=== PATIENT | male | born 1940 | race African-American/Black ===

== ENCOUNTER 2020-09-10 12:05 | Emergency (ER) | payer OTHER ==
[~2020-09-10] VITALS: Ht 177.8 cm; Wt 73.0 kg
[~2020-09-10 12:05] MED LIST: COR25; FURO-151; LISI10TA5; NTG
[2020-09-10] MEDS ORDERED: DEXAMETHASONE 10 MG/ML VIAL IV ONE (13:00)
[2020-09-10 13:01] LABS: HEMATOCRIT. 45.2 % (42.0-52.0); HEMOGLOBIN. 14.7 g/dL (14.0-18.0); MEAN CORPUSCULAR HEMOGLOBIN 31.5 pg (28.0-32.0); MEAN CORPUSCULAR VOLUME 96.8 fL (80.0-94.0); PLATELET 107 x1000/uL (130-400); RED BLOOD CELL COUNT 4.67 mill/uL (4.7-6.1); RED CELL DISTRIBUTION WIDTH 14.2 % (11.6-14.6)
[2020-09-10 13:14] LABS: CHLORIDE 105 mEq/L (98-107)
[2020-09-10 13:15] LABS: PLATELET ESTIMATE SLIGHTLY DECREASED
[2020-09-10] MEDS ORDERED: FLUORESCEIN SODIUM 1MG/STRIP RIGHTEYE ONE (13:30)
[2020-09-10] MEDS ORDERED: ACYCLOVIR 400 MG TABLET PO ONE (13:30)
[2020-09-10 13:45] LABS: CLARITY URINE CLEAR (CLEAR); COLOR URINE DARK YELLOW (YELLOW); KETONES URINE 1+ (NEGATIVE); LEUKOCYTE ESTERASE URINE 1+ (NEGATIVE); NITRITE URINE POSITIVE (NEGATIVE); OCCULT BLOOD URINE TRACE (NEGATIVE); PH URINE 5.5 (4.5-8.0); PROTEIN URINE 1+ (NEGATIVE); SPECIFIC GRAVITY URINE 1.028 (1.005-1.030)
[2020-09-10] MEDS ORDERED: VALA100044 PO (18:02)
[2020-09-10] MEDS ORDERED: P50 MT (18:03)
[2020-09-10 18:12] VITALS: BP 151/89
== END 2020-09-10 18:15 | disposition home or self-care (01) ==
LOC: ER 12:05
DX: B02.9 Zoster without complications (principal); I11.0 Hypertensive heart disease with heart failure; I50.9 Heart failure, unspecified; I48.91 Unspecified atrial fibrillation; I62.9 Nontraumatic intracranial hemorrhage, unspecified
CPT/HCPCS: 36415; 71045; 80048; 80076; 81003; 83605; 84484; 85025; 87040; 87086; 93005; 96374; 99285; J1100

== ENCOUNTER 2022-11-23 15:54 | Inpatient (IN) | payer MEDICARE ==
[~2022-11-23] VITALS: Ht 177.8 cm; Wt 79.4 kg
[2022-11-23] MEDS ORDERED: FUROSEMIDE 40MG/4ML VIAL IVP ONE (16:15)
[2022-11-23] MEDS ORDERED: LORAZEPAM 2MG/ML CPJ IV ONE (17:15)
[2022-11-23] MEDS ORDERED: LEVOFLOXACIN 750MG PREMIX 150 ML IV ONE (18:00)
[2022-11-23 18:02] LABS: HEMATOCRIT. 40.4 % (42.0-52.0); MEAN CORPUSCULAR HEMOGLOBIN 30.8 pg (28.0-32.0); MEAN CORPUSCULAR VOLUME 95.9 fL (80.0-94.0); MEAN PLATELET VOLUME 9.3 fl (7.4-10.4); PLATELET 165 x1000/uL (130-400); RED BLOOD CELL COUNT 4.22 mill/uL (4.7-6.1); RED CELL DISTRIBUTION WIDTH 16.8 % (11.6-14.6)
[2022-11-23 18:09] LABS: CHLORIDE 103 mEq/L (98-107); INR 2.1; PROTHROMBIN TIME 21.3 sec (9.6-11.0)
[2022-11-23 18:28] LABS: PLATELET ESTIMATE NORMAL
[2022-11-23 19:46] LABS: CLARITY URINE CLEAR (CLEAR); COLOR URINE YELLOW (YELLOW); KETONES URINE NEGATIVE (NEGATIVE); LEUKOCYTE ESTERASE URINE TRACE (NEGATIVE); NITRITE URINE NEGATIVE (NEGATIVE); OCCULT BLOOD URINE 3+ (NEGATIVE); PROTEIN URINE NEGATIVE (NEGATIVE); SPECIFIC GRAVITY URINE 1.009 (1.005-1.030)
[2022-11-24] VITALS (7 sets, daily range): BP systolic 101–135; BP diastolic 58–97
[2022-11-24] MEDS ORDERED: ONDANSETRON HCL 4MG/2ML INJ IV PRN (02:15)
[2022-11-24] MEDS ORDERED: DEXTROSE 50% WATER 50ML SYRINGE IV PRN (02:15)
[2022-11-24] MEDS ORDERED: ACETAMINOPHEN 325MG TABLET PO PRN ×2 (02:15→10:30)
[2022-11-24] MEDS: BLOOD SUGAR DIAGNOSTIC STRIP TEST SCH ×4 (06:50→21:00)
[2022-11-24 07:02] LABS: HEMATOCRIT. 38.6 % (42.0-52.0); HEMOGLOBIN. 12.5 g/dL (14.0-18.0); MEAN CORPUSCULAR HEMOGLOBIN 30.5 pg (28.0-32.0); MEAN CORPUSCULAR VOLUME 94.6 fL (80.0-94.0); MEAN PLATELET VOLUME 9.4 fl (7.4-10.4); PLATELET 151 x1000/uL (130-400); RED BLOOD CELL COUNT 4.08 mill/uL (4.7-6.1); RED CELL DISTRIBUTION WIDTH 16.6 % (11.6-14.6)
[2022-11-24] MEDS: FUROSEMIDE 40MG/4ML VIAL IVP SCH ×2 (07:12→19:49)
[2022-11-24] MEDS: INSULIN LISPRO 100 UNITS/ML SUBCUT SCH ×4 (07:20→21:00)
[2022-11-24 07:53] LABS: CHLORIDE 105 mEq/L (98-107)
[2022-11-24] MEDS: POTASSIUM CHLORIDE 20MEQ TABLET SR PO SCH ×2 (09:19→22:10)
[2022-11-24] MEDS ORDERED: DOCUSATE SODIUM 100MG CAPSULE PO PRN (10:30)
[2022-11-24] MEDS ORDERED: CLONIDINE 0.1MG TABLET PO PRN (10:30)
[2022-11-24] MEDS ORDERED: IPRATROPIUM/ALBUTEROL 0.5-3(2.5)MG/3ML NEB HHN PRN (10:30)
[2022-11-24 13:22] LABS: INR 1.9; PROTHROMBIN TIME 19.8 sec (9.6-11.0)
[2022-11-24] MEDS ORDERED: CEFTRIAXONE 1,000 MG in DEXTROSE 5% WATER 50 ML IV SCH (14:00)
[2022-11-24] MEDS: LORAZEPAM 2MG/ML CPJ IV PRN (14:43)
[2022-11-24] MEDS: LEVOFLOXACIN 500MG PREMIX 100 ML IV SCH (16:33)
[2022-11-24 16:43] LABS: PLATELET ESTIMATE NORMAL
[2022-11-24] MEDS ORDERED: LORA-249 PO (17:07)
[2022-11-24] MEDS ORDERED: ESCI-7 MT (17:07)
[2022-11-24] MEDS ORDERED: APIX5TAB4 PO (17:07)
[2022-11-24] MEDS ORDERED: FURO40TA5 PO (17:07)
[2022-11-24] MEDS ORDERED: PHEN100C4 PO (17:07)
[2022-11-24] MEDS ORDERED: METF-414 PO (17:07)
[2022-11-24] MEDS ORDERED: NALOXONE HCL 0.4MG/ML VIAL IV PRN (20:30)
[2022-11-24] MEDS ORDERED: ENOXAPARIN 30MG/0.3ML SYR SUBCUT SCH (21:00)
[2022-11-24] MEDS: HYDROCODONE/ACETAMINOPHEN 5/325MG TABLET PO PRN (22:16)
[2022-11-25] VITALS (7 sets, daily range): BP systolic 104–127; BP diastolic 71–92
[2022-11-25] MEDS: LORAZEPAM 2MG/ML CPJ IV PRN ×2 (00:43→12:29)
[2022-11-25] MEDS: FUROSEMIDE 40MG/4ML VIAL IVP SCH ×3 (06:28→22:43)
[2022-11-25] MEDS: BLOOD SUGAR DIAGNOSTIC STRIP TEST SCH ×4 (06:34→20:54)
[2022-11-25] MEDS: HYDROCODONE/ACETAMINOPHEN 5/325MG TABLET PO PRN (06:34)
[2022-11-25] MEDS: INSULIN LISPRO 100 UNITS/ML SUBCUT SCH ×4 (06:35→20:53)
[2022-11-25] MEDS: POTASSIUM CHLORIDE 20MEQ TABLET SR PO SCH ×2 (09:54→20:39)
[2022-11-25 10:26] LABS: HEMATOCRIT. 38.7 % (42.0-52.0); HEMOGLOBIN. 12.7 g/dL (14.0-18.0); MEAN CORPUSCULAR HEMOGLOBIN 30.9 pg (28.0-32.0); MEAN CORPUSCULAR VOLUME 94.4 fL (80.0-94.0); MEAN PLATELET VOLUME 9.6 fl (7.4-10.4); PLATELET 137 x1000/uL (130-400); RED CELL DISTRIBUTION WIDTH 16.3 % (11.6-14.6)
[2022-11-25 10:48] LABS: PLATELET ESTIMATE NORMAL
[2022-11-25] MEDS ORDERED: LEVOFLOXACIN 250MG PREMIX 50 ML IV SCH (15:00)
[2022-11-25 15:13] LABS: BG BASE EXCESS 1.4 mmol/L (-2.0-2.0); BG CARBOXYHEMOGLOBIN 0.6 % (0.5-1.5); BG HCO3 ACT 25.1 mmol/L (22.0-26.0); BG METHEMOGLOBIN 0.2 % (0.0-1.5); BG OXYHEMOGLOBIN 97.2 % (94.0-97.0); BG PCO2 36.8 mmHg (35.0-45.0); BG PH 7.451 (7.350-7.450); BG PO2 108.3 mmHg (75.0-100.0); BG SAMPLE SITE RIGHT BRACHIAL; BG TOTAL HEMOGLOBIN 14.2 g/dL (12.0-18.0); BG VENT MODE NASAL CANNULA
[2022-11-25] MEDS: LEVOFLOXACIN 500MG PREMIX 100 ML IV SCH (15:17)
[2022-11-25 17:48] LABS: INR 1.7; PROTHROMBIN TIME 18.1 sec (9.6-11.0)
[2022-11-25 18:56] LABS: CHLORIDE 102 mEq/L (98-107)
[2022-11-25] MEDS: ALBUTEROL (0.083%) 2.5MG/3ML NEB HHN SCH (20:54)
[2022-11-25] MEDS: TRAZODONE HCL 50MG TABLET PO SCH (22:42)
[2022-11-25] MEDS: APIXABAN 5 MG TABLET PO SCH (22:43)
[2022-11-25] MEDS: CARVEDILOL 6.25 MG TABLET PO SCH (22:46)
[2022-11-26] VITALS: BP 115/72
[2022-11-26] MEDS: ALBUTEROL (0.083%) 2.5MG/3ML NEB HHN SCH ×4 (00:44→20:28)
[2022-11-26 04:00] VITALS: BP 116/68
[2022-11-26] MEDS: INSULIN LISPRO 100 UNITS/ML SUBCUT SCH ×4 (07:20→21:00)
[2022-11-26] MEDS: BLOOD SUGAR DIAGNOSTIC STRIP TEST SCH ×4 (07:25→21:00)
[2022-11-26 08:00] VITALS: BP 104/67
[2022-11-26] MEDS: CARVEDILOL 6.25 MG TABLET PO SCH (09:00)
[2022-11-26] MEDS: POTASSIUM CHLORIDE 20MEQ TABLET SR PO SCH (09:47)
[2022-11-26] MEDS: APIXABAN 5 MG TABLET PO SCH (10:38)
[2022-11-26] MEDS: FUROSEMIDE 40MG/4ML VIAL IVP SCH ×2 (10:38→22:00)
[2022-11-26 12:00] VITALS: BP 100/73
[2022-11-26] MEDS: LEVOFLOXACIN 250MG TABLET PO SCH (14:35)
[2022-11-26 16:00] VITALS: BP 100/65
[2022-11-26 16:50] LABS: HEMATOCRIT. 39.7 % (42.0-52.0); HEMOGLOBIN. 12.8 g/dL (14.0-18.0); MEAN CORPUSCULAR HEMOGLOBIN 30.6 pg (28.0-32.0); MEAN CORPUSCULAR VOLUME 95.2 fL (80.0-94.0); MEAN PLATELET VOLUME 9.1 fl (7.4-10.4); PLATELET 118 x1000/uL (130-400); RED BLOOD CELL COUNT 4.17 mill/uL (4.7-6.1); RED CELL DISTRIBUTION WIDTH 16.2 % (11.6-14.6)
[2022-11-26 16:55] LABS: CHLORIDE 101 mEq/L (98-107)
[2022-11-26] MEDS: HYDROCODONE/ACETAMINOPHEN 5/325MG TABLET PO PRN (17:53)
[2022-11-26 20:00] VITALS: BP 111/67
[2022-11-26 21:17] LABS: PLATELET ESTIMATE DECREASED
[2022-11-27] VITALS: BP 111/62
[2022-11-27] MEDS: TRAZODONE HCL 50MG TABLET PO SCH ×2 (01:20→23:04)
[2022-11-27] MEDS: APIXABAN 5 MG TABLET PO SCH ×3 (01:21→23:02)
[2022-11-27] MEDS: POTASSIUM CHLORIDE 20MEQ TABLET SR PO SCH ×3 (01:21→23:04)
[2022-11-27] MEDS: CARVEDILOL 6.25 MG TABLET PO SCH ×3 (01:23→21:00)
[2022-11-27] MEDS: HYDROCODONE/ACETAMINOPHEN 5/325MG TABLET PO PRN ×2 (01:35→23:05)
[2022-11-27] MEDS: ALBUTEROL (0.083%) 2.5MG/3ML NEB HHN SCH ×4 (02:01→20:59)
[2022-11-27 04:00] VITALS: BP 102/68
[2022-11-27] MEDS: INSULIN LISPRO 100 UNITS/ML SUBCUT SCH ×3 (07:04→21:00)
[2022-11-27] MEDS: BLOOD SUGAR DIAGNOSTIC STRIP TEST SCH ×3 (07:04→21:00)
[2022-11-27 07:35] LABS: BASOPHILS % 0.6 % (0.0-2.0); EOSINOPHILS % 1.8 % (0.0-5.0); HEMOGLOBIN. 12.6 g/dL (14.0-18.0); LYMPHOCYTES % 15.8 % (20.0-50.0); MEAN CORPUSCULAR HEMOGLOBIN 30.3 pg (28.0-32.0); MEAN CORPUSCULAR VOLUME 93.8 fL (80.0-94.0); MEAN PLATELET VOLUME 9.6 fl (7.4-10.4); MONOCYTES % 14.7 % (2.0-8.0); NEUTROPHILS % 67.1 % (40.0-76.0); PLATELET 126 x1000/uL (130-400); RED BLOOD CELL COUNT 4.16 mill/uL (4.7-6.1)
[2022-11-27 08:00] VITALS: BP 111/56
[2022-11-27 08:22] LABS: VITAMIN B12 SERUM 1214 pg/mL (211-911)
[2022-11-27 08:23] LABS: CHLORIDE 100 mEq/L (98-107)
[2022-11-27] MEDS: FUROSEMIDE 40MG/4ML VIAL IVP SCH ×2 (09:45→23:02)
[2022-11-27 12:00] VITALS: BP 112/69
[2022-11-27] MEDS: LEVOFLOXACIN 250MG TABLET PO SCH (14:20)
[2022-11-27] MEDS: SPIRONOLACTONE 25MG TABLET PO SCH (14:20)
[2022-11-27 16:00] VITALS: BP 116/79
[2022-11-27 20:00] VITALS: BP 109/9
[2022-11-28] VITALS (7 sets, daily range): BP systolic 100–112; BP diastolic 65–72
[2022-11-28] MEDS: ALBUTEROL (0.083%) 2.5MG/3ML NEB HHN SCH ×4 (00:47→20:19)
[2022-11-28 05:51] LABS: CHLORIDE 98 mEq/L (98-107)
[2022-11-28 05:52] LABS: BASOPHILS % 0.7 % (0.0-2.0); EOSINOPHILS % 2.3 % (0.0-5.0); HEMATOCRIT. 39.6 % (42.0-52.0); HEMOGLOBIN. 12.9 g/dL (14.0-18.0); MEAN CORPUSCULAR HEMOGLOBIN 30.5 pg (28.0-32.0); MEAN CORPUSCULAR VOLUME 93.8 fL (80.0-94.0); MEAN PLATELET VOLUME 8.8 fl (7.4-10.4); MONOCYTES % 14.4 % (2.0-8.0); NEUTROPHILS % 64.6 % (40.0-76.0); PLATELET 129 x1000/uL (130-400); RED BLOOD CELL COUNT 4.22 mill/uL (4.7-6.1); RED CELL DISTRIBUTION WIDTH 16.3 % (11.6-14.6)
[2022-11-28] MEDS: BLOOD SUGAR DIAGNOSTIC STRIP TEST SCH ×3 (07:12→16:50)
[2022-11-28] MEDS: INSULIN LISPRO 100 UNITS/ML SUBCUT SCH ×3 (07:13→17:20)
[2022-11-28] MEDS ORDERED: LACTULOSE 20G/30ML UDC PO NR (09:00)
[2022-11-28] MEDS: POTASSIUM CHLORIDE 20MEQ TABLET SR PO SCH ×2 (10:16→21:07)
[2022-11-28] MEDS: APIXABAN 5 MG TABLET PO SCH ×2 (10:16→21:07)
[2022-11-28] MEDS: SPIRONOLACTONE 25MG TABLET PO SCH (10:16)
[2022-11-28] MEDS: FUROSEMIDE 40MG/4ML VIAL IVP SCH (10:32)
[2022-11-28] MEDS: CARVEDILOL 6.25 MG TABLET PO SCH ×2 (10:36→21:07)
[2022-11-28] MEDS: LEVOFLOXACIN 250MG TABLET PO SCH (15:00)
[2022-11-28] MEDS: TRAZODONE HCL 50MG TABLET PO SCH (21:07)
== END 2022-11-28 21:38 | disposition home health service (06) | DRG 291 ==
LOC: ER 15:54 → MICUSO 19:47 → 3WST 11-24 00:10
PROVIDERS: ADMIT Internal Medicine; ATTEND Internal Medicine
PROC: 4A00X4Z Measurement of Central Nervous Electrical Activity, External Approach (ICD-10-PCS; principal; 2022-11-27)
DX: I11.0 Hypertensive heart disease with heart failure (principal); G92.8 Other toxic encephalopathy; I50.23 Acute on chronic systolic (congestive) heart failure; E87.20 Acidosis, unspecified; N39.0 Urinary tract infection, site not specified; J91.8 Pleural effusion in other conditions classified elsewhere; E11.9 Type 2 diabetes mellitus without complications; Z20.822 Contact with and (suspected) exposure to COVID-19; R79.89 Other specified abnormal findings of blood chemistry; I25.10 Atherosclerotic heart disease of native coronary artery without angina pectoris; I42.8 Other cardiomyopathies; J44.9 Chronic obstructive pulmonary disease, unspecified; Z79.01 Long term (current) use of anticoagulants; Z85.46 Personal history of malignant neoplasm of prostate; Z86.73 Personal history of transient ischemic attack (TIA), and cerebral infarction without residual deficits; Z87.891 Personal history of nicotine dependence; Z88.2 Allergy status to sulfonamides; Z95.0 Presence of cardiac pacemaker; Z88.0 Allergy status to penicillin
CPT/HCPCS: 36415; 36600; 71045; 80048; 80053; 81003; 82140; 82375; 82607; 82805; 82962; 83036; 83605; 83735; 83880; 84145; 84443; 84484; 85025; 87426; 93005; 93306; 94640; 95816; 97116; 97162; 99291; C1893; C9803; J0696; J1940; J1956; J2060; J7060